=== PATIENT | male | born 1960 | race Caucasian/White ===

== ENCOUNTER 2018-06-11 07:53 | Day surgery (SDC) | payer OTHER ==
[~2018-06-11 07:53] MED LIST: ATENOLO PO; CORDURA PO; FORTAMET1000 MG PO; GABAPENTIN600 MG PO; HYZAAR 100-251 EACH PO; ZOCOR20 MG PO
== END 2018-06-11 15:25 | disposition home or self-care (01) ==
LOC: CIR.AMB 07:53
DX: M43.16 Spondylolisthesis, lumbar region (principal)